=== PATIENT | male | born 1980 ===

== ENCOUNTER 2021-07-20 05:54 | Day surgery (SDC) | payer OTHER ==
[2021-07-20] MEDS ORDERED: NEXIUM 24HR20 MG PO (09:30)
== END 2021-07-20 10:50 | disposition home or self-care (01) ==
LOC: AMB-ENDOS 05:54
PROVIDERS: ATTEND Surgery
DX: K29.50 Unspecified chronic gastritis without bleeding (principal); K44.9 Diaphragmatic hernia without obstruction or gangrene; Z20.822 Contact with and (suspected) exposure to COVID-19